=== PATIENT | female | born 2000 | race Caucasian/White ===

== ENCOUNTER 2022-02-11 16:09 | Outpatient (CLI) | payer OTHER, SELFPAY ==
[2022-02-11 17:32] LABS: Chloride* 103 mmol/L (96-114); Potassium* 4.1 mmol/L (3.6-5.1); Sodium* 137 mmol/L (135-149)
[2022-02-11 17:34] LABS: Creatinine* 0.7 mg/dL (0.6-1.2); Estimated Glomerular Filt Rate 128 ml/min
[2022-02-11 17:35] LABS: Blood Urea Nitrogen* 11 mg/dL (5-24); Calcium* 9.4 mg/dL (8.7-10.8); Carbon Dioxide* 23 mmol/L (20-32); Glucose* 80 mg/dL (60-115)
== END 2022-02-11 16:10 | disposition home or self-care (01) ==
PROVIDERS: PCP Family Medicine; Visit Provider Family Medicine
DX: R25.2 Cramp and spasm (principal); R51.9 Headache, unspecified
CPT/HCPCS: 80048; 83735; 84443

== ENCOUNTER 2024-04-01 13:18 | Outpatient (CLI) | payer BC, OTHER, SELFPAY | END 2024-04-01 13:19 | disposition home or self-care (01) | PROVIDERS: PCP Family Medicine; Visit Provider Obstetrics & Gynecology | DX: F41.1 Generalized anxiety disorder (principal); Z13.89 Encounter for screening for other disorder; Z13.29 Encounter for screening for other suspected endocrine disorder | CPT/HCPCS: 82306; 84443 ==